=== PATIENT | male | born 1980 | race Caucasian/White ===

== ENCOUNTER 2019-04-09 13:12 | Emergency (ER) | payer BC ==
[2019-04-09 13:20] VITALS: BP 155/70; PULSE 82; TEMP 98.7
[2019-04-09] MEDS ORDERED: IBUPROFEN 400 MG TABLET (FP) PO ONE ×2 (13:50→13:54)
[2019-04-09] MEDS ORDERED: CYCLOBENZAPRINE HCL 10 MG TABLET (FP) PO ONE (13:50)
--- NOTE | 2019-04-09 13:51 | PDOC ---
History of Present Illness - General Chief Complaint: Back Pain Stated Complaint: BACK PAIN Time Seen by Provider: 04/09/19 13:24 History Source: Patient Exam Limitations: No Limitations - History of Present Illness Initial Comments: 04/09/19 13:51 38 y M hx of htn, sz d/o, gerd, testicular ca, presents with complaint of back pain. Pt has been having a URI for the past few weeks with nasal congestion and cough wo fever, had sen his PMD and was started on a zpack and course of steroids with improvement of his cough. however today, he coughed and felt a sudden sharp R sided back pain. It hurts him more when he coughs or has certain movements, inluding walking. Denies any sob, forbes,hemoptysis, cp, leg swelling, calf pain, fever/chills. Pt ntotes his coughing has actually been improving, and he coughs primarily to clear his throat. Ros: Constitutional - no reported Fever, Chills, HEENT: +nasal congestion no reported vision changes, sore throat Respiratory: +cough, no reported hemoptysis Cardiac: no reported chest pain, palpitations, light headedness, leg swelling Abd/GI: no reported abd pain, nausea, vomiting, blood per rectum, melena, diarrhea : no reported dysuria, frequency, discharge Musculskelatal - +back pain, no reported joint swelling skin - no reported bruising, erythema, rash neurological: no reported headache, numbness, focal weakness, tingling, ataxia, hematologic: no reported easy bruising, easy bleeding Exam: GENERAL: The patient is awake, alert, and fully oriented, Nontoxic - in no acute distress. HEAD: Normocephalic, atraumatic. EYES: extraocular movements intact, sclera anicteric, conjunctiva clear. ENT: Normal voice, Moist mucous membranes. NECK: Normal range of motion, supple LUNGS:scant intermittent wheez on L base, no rales, no acute respiratory distress, speaking complete sentences. BACK: No focal bony tenderness in the back, no erythema, fluctuance, rashes noted. The patient pain is reproducible with rotation against resistance of torso and mild tenderness in the subscapula/paraspsinal region HEART: Regular rate and rhythm, normal S1 and S2 without murmur, rub or gallop. ABDOMEN: Soft, nontender, No guarding, no rebound. No CVA tenderness EXTREMITIES: Normal range of motion, no edema. NEUROLOGICAL: No facial assymetry, Normal speech, moving all 4 extremities spontaneously and symmetrically PSYCH: Normal mood, normal affect. SKIN: Warm, Dry, normal turgor, likely muscle strain will obtain xray to r/o pna, ptx will give motrin/fllexeril Past History - Past Medical History Allergies/Adverse Reactions: Allergies Allergy/AdvReac Type Severity Reaction Status Date / Time amoxicillin [From Augmentin] Allergy Rash Verified 04/09/19 13:14 clavulanic acid Allergy Rash Verified 04/09/19 13:14 [From Augmentin] Home Medications: Ambulatory Orders Carbamazepine [Tegretol -] 200 mg PO TID 04/09/19 Cyclobenzaprine HCl [Flexeril 10 mg] 10 mg PO BID PRN #15 tablet 04/09/19 Famotidine [Pepcid] 20 mg PO DAILY 04/09/19 Hydrochlorothiazide 25 mg PO DAILY 04/09/19 Ibuprofen [Motrin -] 400 mg PO ONCE 04/09/19 Valsartan 320 mg PO DAILY 04/09/19 Cancer: Yes (testicular) COPD: No GI Disorders: Yes (acid reflux) HTN: Yes Seizures: Yes - Psycho Social/Smoking Cessation Hx Smoking History: Never smoked Have you smoked in the past 12 months: No Information on smoking cessation initiated: No Hx Alcohol Use: No *Physical Exam - Vital Signs Last Vital Signs Temp Pulse Resp BP Pulse Ox 98.7 F 82 18 155/70 100 04/09/19 13:12 04/09/19 13:12 04/09/19 13:12 04/09/19 13:12 04/09/19 13:12 ED Treatment Course - RADIOLOGY Radiology Studies Ordered: Category Date Time Status CHEST PA & LAT [RAD] Stat Radiology 04/09/19 13:50 Ordered Medical Decision Making - Medical Decision Making 04/09/19 14:20 pts xray noted for possible ANNIE infiltrate pt clinically feels improved and just finished course of zpack will dc with supportive care no signs of ptx or fx return precautions were discussed I discussed the physical exam findings, ancillary test results and final diagnoses with the patient. I answered all of the patient's questions. The patient was satisfied with the care received and felt comfortable with the discharge plan and treatment plan. The patient will call their primary care physician within 24 hours to arrange follow-up and will return to the Emergency Department with any new, persistent or worsening symptoms. Discharge - Discharge Information Problems reviewed: Yes Clinical Impression/Diagnosis: Cough Back strain Qualifiers: Encounter type: initial encounter Qualified Code(s): S39.012A - Strain of muscle, fascia and tendon of lower back, initial encounter Condition: Improved Disposition: HOME - Admission No - Follow up/Referral Referrals: Alton Ku [Primary Care Provider] - - Patient Discharge Instructions Patient Printed Discharge Instructions: DI for Back Strain or Sprain Additional Instructions: Return to the emergency department immediately with ANY new, persistent or worsening symptoms including numbness, tingling, weakness, fevers or any other concerns. Take ibuprofen (400mg)/tylenol(650mg) every 6 hours for 2 days. Take the flexeril if you still have pain/discomfort. Caution in using flexeril as it may make you sleepy. Do not drive or put yourself in any position where you would be in danger. Apply heat to your sore muscles. You MUST call and follow up with your doctor in 4-5 days for further evaluation of your symptoms. Your emergency department visit is not complete without a followup with your doctor for reevaluation.. Results were discussed with you. Please make sure your doctor reviews the results of your emergency evaluation. Print Language: GREEK - Post Discharge Activity Work/Back to School Note: Back to Work
[2019-04-09] MEDS ORDERED: CYCLOBENZAPRINE HCL 10 MG TABLET (FP) ONE (13:54)
== END 2019-04-09 14:33 | disposition home or self-care (01) ==
LOC: FER 13:12 → SUPCPDRO 13:12 → FER 14:33
DX: S39.012A Strain of muscle, fascia and tendon of lower back, initial encounter (principal); R05 Cough; Z88.8 Allergy status to other drugs, medicaments and biological substances; I10 Essential (primary) hypertension; R56.9 Unspecified convulsions; Z85.47 Personal history of malignant neoplasm of testis
CPT/HCPCS: 71046-TC-FY; 99283-25